=== PATIENT | female | born 1935 | race African-American/Black ===

== ENCOUNTER 2019-01-01 08:26 | Inpatient (IN) | payer MEDICARE, OTHER ==
[~2019-01-01] VITALS: Ht 175.3 cm; Wt 52.6 kg
[~2019-01-01 08:26] MED LIST: ARICEPT10 MG ORAL; BUSPIRONE HCL10 M1 ORAL; DEBROX15 M1 OT; KEPPRA500 MG ORAL; KEPPRA500 MG PO; LATANOPROST2.5 ML BOTH EYES; LEVOTHYROXINE75 MCG ORAL; NORVASC2.5 MG PO; SYNTHROID50 MCG PO
[2019-01-01] MEDS ORDERED: ZOLOFT25 MG ORAL (08:33)
[2019-01-01] MEDS ORDERED: LISINOPRIL2.5 MG ORAL (08:34)
--- NOTE | 2019-01-01 09:00 | NUR ---
ED Nurse Note: Pt BIBA from home due to generalized weakness, started with vomiting on Saturday12/27/2018. Pt ate some food that "wasnt agreeing with her", since then she has not been "losing her appetite, only eating fluid food". Pt is stated to walk on her own usually but today she could not get out of bed. Aox4, VSS will, BP 102/45 will. Will cont to monitor.
[2019-01-01 09:11] VITALS: BP 106/45
--- NOTE | 2019-01-01 09:12 | NUR ---
ED Nurse Note: Blood drawn and sent to lab.
[2019-01-01 09:23] LABS: BASOPHILS % (AUTO) 1.1 % (0.0-2.0); EOSINOPHILS % (AUTO) 0.2 % (0.0-3.0); HEMOGLOBIN 15.8 G/DL (12.0-16.0); LYMPHOCYTES % (AUTO) 15.4 % (20.0-45.0); MEAN CORPUSCULAR VOLUME 85 FL (80-99); MONOCYTES % (AUTO) 10.7 % (1.0-10.0); NEUTROPHILS % (AUTO) 72.7 % (45.0-75.0); PLATELET COUNT 177 K/UL (150-450); RED BLOOD COUNT 5.76 M/UL (4.20-5.40); RED CELL DISTRIBUTION WIDTH 11.9 % (11.6-14.8); WHITE BLOOD COUNT 7.2 K/UL (4.8-10.8)
[2019-01-01 09:35] LABS: ANION GAP 8 mmol/L (5-15); BLOOD UREA NITROGEN 82 mg/dL (7-18); CALCIUM 9.6 MG/DL (8.5-10.1); CARBON DIOXIDE 29 MMOL/L (21-32); CHLORIDE 101 MMOL/L (98-107); CREATININE 1.7 MG/DL (0.55-1.30); POTASSIUM 4.1 MMOL/L (3.5-5.1); SODIUM 138 MMOL/L (136-145)
[2019-01-01 09:45] LABS: ALANINE AMINOTRANSFERASE 19 U/L (12-78); ALBUMIN/GLOBULIN RATIO 0.7 (1.0-2.7); ALKALINE PHOSPHATASE 70 U/L (46-116); ASPARTATE AMINO TRANSFERASE 26 U/L (15-37); BILIRUBIN,TOTAL 0.7 MG/DL (0.2-1.0)
[2019-01-01 11:09] VITALS: BP 99/40
--- NOTE | 2019-01-01 11:30 | NUR ---
ED Nurse Note: Pt sleeping comfortably in bed. BP systolic monitored Q30 mins, systolic BP >90 at all time.
--- NOTE | 2019-01-01 11:36 | NUR ---
ED Nurse Note: Report given to BHARGAV Cyr at ext [phone]. Pt to be transfered to room 201-[facility] per protocol.
[2019-01-01] MEDS ORDERED: Morphine Sulfate 2mg/ml Inj(IV/IM USE ONLY) IVP PRN (12:30)
[2019-01-01] MEDS ORDERED: Zolpidem 5mg tab ORAL PRN (12:30)
[2019-01-01] MEDS ORDERED: LORazepam Inj 2mg/ml 1ml IV PRN (12:30)
[2019-01-01] MEDS ORDERED: Mylanta II UD 30ml ORAL PRN (12:30)
[2019-01-01] MEDS ORDERED: Miralax 17gm pkt ORAL PRN (12:30)
[2019-01-01] MEDS ORDERED: Dextrose 50% 25ml Syringe IV PRN (12:45)
--- NOTE | 2019-01-01 13:44 | Consultation ---
History of Present Illness General Date patient seen: January 01, 2019 Chief Complaint: Generalized Weakness Present Illness HPI 83 year old female with hx of HTN, breast Ca, hypothyroid, seizures ( last episode many years ago) brought in by paramedics with cc of increased weakness and lack of appetite. Pt was found to have ATN and was hypotensive as well. She is admitted to telemetry for further management. Allergies: Coded Allergies: PENICILLINS (Verified Allergy, Unknown, 10/24/15) IODINE (Verified Adverse Reaction, Severe, SEIZURE, 11/06/12) Medication History Scheduled Carbamide Peroxide (Debrox), 5 DROP OT QID Donepezil Hcl* (Aricept*), 10 MG ORAL DAILY, (Reported) Latanoprost* (Xalatan*), 1 DROP BOTH EYES QHS, (Reported) Levetiracetam (Keppra), 250 MG ORAL Q12HR Levothyroxine Sodium* (Levothyroxine Sodium*), 75 MCG ORAL ACBREAKFAST Lisinopril* (Lisinopril*), Unknown Dose ORAL DAILY, (Reported) Sertraline Hcl* (Zoloft*), Unknown Dose ORAL DAILY, (Reported) Miscellaneous Medications Buspirone Hcl* (Buspirone Hcl*), 10 MG ORAL, (Reported) Patient History Healthcare decision maker REN GARCIA Resuscitation status Advanced Directive on File No Past Medical/Surgical History Past Medical/Surgical History: (1) Severe protein-calorie malnutrition (2) Hypothyroidism (3) History of breast cancer (4) Polypharmacy (5) Hypertension Review of Systems All Other Systems: negative except mentioned in HPI Physical Exam General Appearance: cachetic, thin Lines, tubes and drains: peripheral HEENT: normocephalic, atraumatic Neck: non-tender, normal alignment Respiratory/Chest: chest wall non-tender, lungs clear Breasts: no masses Cardiovascular/Chest: normal peripheral pulses, normal rate Abdomen: normal bowel sounds, non tender Genitourinary/Rectal: normal genital exam Extremities: normal range of motion Last 24 Hour Vital Signs Date Time Temp Pulse Resp B/P (MAP) Pulse Ox O2 Delivery O2 Flow Rate FiO2 01/01/19 11:36 78 20 99/40 98 Room Air 01/01/19 11:09 78 22 99/40 98 Room Air 01/01/19 09:11 71 20 Room Air 01/01/19 09:11 71 20 106/45 98 Room Air 01/01/19 08:30 95.7 74 16 92/47 99 Room Air Laboratory Tests Test 01/01/19 09:05 White Blood Count 7.2 K/UL (4.8-10.8) Red Blood Count 5.76 M/UL (4.20-5.40) H Hemoglobin 15.8 G/DL (12.0-16.0) Hematocrit 49.0 % (37.0-47.0) H Mean Corpuscular Volume 85 FL (80-99) Mean Corpuscular Hemoglobin 27.4 PG (27.0-31.0) Mean Corpuscular Hemoglobin Concent 32.1 G/DL (32.0-36.0) Red Cell Distribution Width 11.9 % (11.6-14.8) Platelet Count 177 K/UL (150-450) Mean Platelet Volume 7.3 FL (6.5-10.1) Neutrophils (%) (Auto) 72.7 % (45.0-75.0) Lymphocytes (%) (Auto) 15.4 % (20.0-45.0) L Monocytes (%) (Auto) 10.7 % (1.0-10.0) H Eosinophils (%) (Auto) 0.2 % (0.0-3.0) Basophils (%) (Auto) 1.1 % (0.0-2.0) Erythrocyte Sedimentation Rate 29 MM/HR (0-30) Prothrombin Time 11.0 SEC (9.30-11.50) Prothromb Time International Ratio 1.0 (0.9-1.1) Activated Partial Thromboplast Time 31 SEC (23-33) D-Dimer 2.08 mg/L FEU (0.00-0.49) H Sodium Level 138 MMOL/L (136-145) Potassium Level 4.1 MMOL/L (3.5-5.1) Chloride Level 101 MMOL/L (98-107) Carbon Dioxide Level 29 MMOL/L (21-32) Anion Gap 8 mmol/L (5-15) Blood Urea Nitrogen 82 mg/dL (7-18) H Creatinine 1.7 MG/DL (0.55-1.30) H Estimat Glomerular Filtration Rate mL/min (>60) Glucose Level 92 MG/DL (74-106) Calcium Level 9.6 MG/DL (8.5-10.1) Total Bilirubin 0.7 MG/DL (0.2-1.0) Aspartate Amino Transf (AST/SGOT) 26 U/L (15-37) Alanine Aminotransferase (ALT/SGPT) 19 U/L (12-78) Alkaline Phosphatase 70 U/L (46-116) Troponin I 0.010 ng/mL (0.000-0.056) C-Reactive Protein, Quantitative 8.9 mg/dL (0.00-0.90) H Pro-B-Type Natriuretic Peptide 3491 pg/mL (0-125) H Total Protein 7.2 G/DL (6.4-8.2) Albumin 3.0 G/DL (3.4-5.0) L Globulin 4.2 g/dL Albumin/Globulin Ratio 0.7 (1.0-2.7) L Thyroid Stimulating Hormone (TSH) 0.082 uiU/mL (0.358-3.740) Height (Feet): 5 Height (Inches): 5.00 Weight (Pounds): 140 Medications Current Medications Medications (Trade) Dose Ordered Sig/Peter Route PRN Reason Start Time Stop Time Status Last Admin Dose Admin Acetaminophen (Tylenol) 650 mg Q4H PRN ORAL fever 01/01/19 12:30 01/31/19 12:29 Al Hydroxide/Mg Hydroxide (Mylanta II) 30 ml Q6H PRN ORAL dyspepsia 01/01/19 12:30 01/31/19 12:29 Buspirone HCl (Buspar) 10 mg DAILY ORAL 01/02/19 09:00 02/01/19 08:59 Dextrose (Dextrose 50%) 25 ml Q30M PRN IV Hypoglycemia 01/01/19 12:45 01/31/19 12:30 Dextrose (Dextrose 50%) 50 ml Q30M PRN IV hypoglycemia 01/01/19 12:45 01/31/19 12:44 Dextrose/Sodium Chloride 1,000 ml @ 150 mls/hr Q6H40M IV 01/01/19 14:00 01/31/19 13:59 Levothyroxine Sodium (Synthroid) 75 mcg ACBREAKFAST ORAL 01/02/19 06:30 02/01/19 06:29 Lorazepam (Ativan 2mg/ml 1ml) 0.5 mg Q4H PRN IV For Anxiety 01/01/19 12:30 01/08/19 12:29 Morphine Sulfate (Morphine Sulfate) 1 mg Q4H PRN IVP For Pain 01/01/19 12:30 01/08/19 12:29 Ondansetron HCl (Zofran) 4 mg Q6H PRN IVP Nausea & Vomiting 01/01/19 12:30 01/31/19 12:29 Polyethylene Glycol (Miralax) 17 gm HSPRN PRN ORAL Constipation 01/01/19 12:30 01/31/19 12:29 Zolpidem Tartrate (Ambien) 5 mg HSPRN PRN ORAL Insomnia 01/01/19 12:30 01/08/19 12:29 Assessment/Plan Problem List: (1) ATN (acute tubular necrosis) ICD Codes: N17.0 - Acute kidney failure with tubular necrosis SNOMED: 76653902 (2) Hypotension ICD Codes: I95.9 - Hypotension, unspecified SNOMED: 75325697 (3) Polypharmacy ICD Codes: Z79.899 - Other head charrer (current) drug therapy SNOMED: 864957428 (4) Severe protein-calorie malnutrition ICD Codes: E43 - Unspecified severe protein-calorie malnutrition SNOMED: 571012693, 647592968, 243332636 (5) Hypothyroidism ICD Codes: E03.9 - Hypothyroidism, unspecified SNOMED: 23706189 (6) History of breast cancer ICD Codes: Z85.3 - Personal history of malignant neoplasm of breast SNOMED: 151526244 Assessment/Plan: iv fluids check electrolytes calorie count trial of Marinol dc unnecessary medications. Cheo Moffett MD January 01, 2019 13:44
[2019-01-01] MEDS: D5 1/2NS 1,000 ML IV SCH ×2 (14:46→20:41)
--- NOTE | 2019-01-01 15:50 | NUR ---
NURSING NOTE: Report received from BHARGAV Solorio. Pt transferred from ER via gurney. Skin intact and belongings checked by charge nurse and ER nurse while i was in my 30 min break. daughter at the bedside. A/O x4. SR with fishing tool supervisor. On RA, saturating at 98%, no signs of SOB. IV intact and patent. Bed in the lowest position. Side rails up x2. Call light within reach. Will continue to monitor.
[2019-01-01 16:00] VITALS: BP 95/54
--- NOTE | 2019-01-01 16:16 | Emergency Room Report ---
History of Present Illness General Chief Complaint: Generalized Weakness Source: Patient, Medical Record, EMS Present Illness HPI Patient is an 83-year-old female brought in by EMS after increased generalized weakness and decreased blood pressure. Patient had recently had blood pressure medication adjusted. She was noted to be more weak all over. Patient had been brought in by EMS and was noted to be hypotensive and was started on IV fluids. Patient was noted to have any complaints of pain. 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 Hx Alzheimer's Disease: Yes Hx Seizures: Yes Review of Systems All Other Systems: limited - Review of systems: Review systems is limited by patient's being a poor historian Physical Exam Vital Signs Date Time Temp Pulse Resp B/P (MAP) Pulse Ox O2 Delivery O2 Flow Rate FiO2 01/01/19 08:30 95.7 74 16 92/47 99 Room Air General Appearance: moderate distress, Chronically Ill Head: normocephalic ENT: normal pharynx Neck: limited range of motion Respiratory: lungs clear, normal breath sounds Cardiovascular #1: regular rate, rhythm, no edema Gastrointestinal: normal inspection, non tender, soft Musculoskeletal: normal inspection Neurologic: alert, responsive Skin: normal inspection Medical Decision Making Diagnostic Impression: Primary Impression: Hypotension ER Course Patient presented for generalized weakness and low blood pressure. Differential diagnosis included was not limited to anemia, urinary tract infection, electrolyte abnormality, hypothyroidism, myocardial infarction, myasthenia gravis, dehydration, among others. Because of complexity of patient' s case laboratory testing and imaging studies were ordered. Laboratory was unremarkable except for elevated BUN and Creatinine consistent with dehydration. Patient was not noted to have any recent bleeding. patient was noted to be initially hypotensive. Patient was started on fluids and was noted to have improvement in her hypotension. The patient's etiology for hypotension is unclear however this may be related to recent onset of medication use.Dr. Moffett was contacted for inpatient management due to complexity of medical condition. Labs Test 01/01/19 09:05 White Blood Count 7.2 K/UL (4.8-10.8) Red Blood Count 5.76 M/UL (4.20-5.40) Hemoglobin 15.8 G/DL (12.0-16.0) Hematocrit 49.0 % (37.0-47.0) Mean Corpuscular Volume 85 FL (80-99) Mean Corpuscular Hemoglobin 27.4 PG (27.0-31.0) Mean Corpuscular Hemoglobin Concent 32.1 G/DL (32.0-36.0) Red Cell Distribution Width 11.9 % (11.6-14.8) Platelet Count 177 K/UL (150-450) Mean Platelet Volume 7.3 FL (6.5-10.1) Neutrophils (%) (Auto) 72.7 % (45.0-75.0) Lymphocytes (%) (Auto) 15.4 % (20.0-45.0) Monocytes (%) (Auto) 10.7 % (1.0-10.0) Eosinophils (%) (Auto) 0.2 % (0.0-3.0) Basophils (%) (Auto) 1.1 % (0.0-2.0) Erythrocyte Sedimentation Rate 29 MM/HR (0-30) Prothrombin Time 11.0 SEC (9.30-11.50) Prothromb Time International Ratio 1.0 (0.9-1.1) Activated Partial Thromboplast Time 31 SEC (23-33) D-Dimer 2.08 mg/L FEU (0.00-0.49) Sodium Level 138 MMOL/L (136-145) Potassium Level 4.1 MMOL/L (3.5-5.1) Chloride Level 101 MMOL/L (98-107) Carbon Dioxide Level 29 MMOL/L (21-32) Anion Gap 8 mmol/L (5-15) Blood Urea Nitrogen 82 mg/dL (7-18) Creatinine 1.7 MG/DL (0.55-1.30) Estimat Glomerular Filtration Rate mL/min (>60) Glucose Level 92 MG/DL (74-106) Calcium Level 9.6 MG/DL (8.5-10.1) Total Bilirubin 0.7 MG/DL (0.2-1.0) Aspartate Amino Transf (AST/SGOT) 26 U/L (15-37) Alanine Aminotransferase (ALT/SGPT) 19 U/L (12-78) Alkaline Phosphatase 70 U/L (46-116) Troponin I 0.010 ng/mL (0.000-0.056) C-Reactive Protein, Quantitative 8.9 mg/dL (0.00-0.90) Pro-B-Type Natriuretic Peptide 3491 pg/mL (0-125) Total Protein 7.2 G/DL (6.4-8.2) Albumin 3.0 G/DL (3.4-5.0) Globulin 4.2 g/dL Albumin/Globulin Ratio 0.7 (1.0-2.7) Thyroid Stimulating Hormone (TSH) 0.082 uiU/mL (0.358-3.740) EKG Diagnostic Results Rate: normal Rhythm: NSR ST Segments: no acute changes Last Vital Signs Date Time Temp Pulse Resp B/P (MAP) Pulse Ox O2 Delivery O2 Flow Rate FiO2 01/01/19 14:37 Room Air 01/01/19 11:36 78 20 99/40 98 01/01/19 08:30 95.7 Status: improved Disposition: ADMITTED INPATIENT Condition: Stable Referrals: NON PHYSICIAN (PCP) Winston Holm MD January 01, 2019 16:16
[2019-01-01] MEDS: Cyproheptadine HCl 4mg tab ORAL SCH ×2 (17:23→21:33)
--- NOTE | 2019-01-01 17:40 | Cardiology Report ---
APPROVED REPORT EKG Measurement Heart [id number] ID [id number] Normal sinus rhythm Biatrial enlargement Left axis deviation Incomplete RBBB Nonspecific T wave abnormality Prolonged QT Abnormal ECG
--- NOTE | 2019-01-01 19:30 | NUR ---
NURSE NOTES: Received pt. and report from BHARGAV Cyr. Observe pt. resting in bed with both eyes open. Pt. is A/Ox4. IV site intact, asymptomatic, and patent. Bed is in the lowest position and locked. Call light within reach. No signs/symptoms of acute distress noted at this time. Will continue plan of care.
--- NOTE | 2019-01-01 19:39 | NUR ---
HAND-OFF: Report given to TANI DURANT.
[2019-01-01 20:00] VITALS: BP 113/56
[2019-01-02] VITALS (9 sets, daily range): BP systolic 91–177; BP diastolic 45–87
[2019-01-02] MEDS: D5 1/2NS 1,000 ML IV SCH ×4 (03:21→21:00)
[2019-01-02 07:07] LABS: BASOPHILS % (AUTO) 0.8 % (0.0-2.0); EOSINOPHILS % (AUTO) 0.7 % (0.0-3.0); HEMOGLOBIN 12.1 G/DL (12.0-16.0); LYMPHOCYTES % (AUTO) 22.2 % (20.0-45.0); MEAN CORPUSCULAR VOLUME 85 FL (80-99); MONOCYTES % (AUTO) 9.4 % (1.0-10.0); NEUTROPHILS % (AUTO) 66.9 % (45.0-75.0); PLATELET COUNT 153 K/UL (150-450); RED BLOOD COUNT 4.33 M/UL (4.20-5.40); RED CELL DISTRIBUTION WIDTH 11.7 % (11.6-14.8); WHITE BLOOD COUNT 5.6 K/UL (4.8-10.8)
--- NOTE | 2019-01-02 07:19 | NUR ---
NURSE NOTES: Received report from BHARGAV Varma. pt resting in bed with both eyes open.is A/Ox4. IV site intact, asymptomatic, and patent. Bed is in the lowest position, rails up, padded x2and locked. Call light within reach. No signs/symptoms of acute distress noted at this time. Will continue plan of care.
[2019-01-02 07:22] LABS: ALANINE AMINOTRANSFERASE 17 U/L (12-78); ALBUMIN 2.3 G/DL (3.4-5.0); ALBUMIN/GLOBULIN RATIO 0.7 (1.0-2.7); ALKALINE PHOSPHATASE 52 U/L (46-116); ANION GAP 6 mmol/L (5-15); ASPARTATE AMINO TRANSFERASE 16 U/L (15-37); BILIRUBIN,TOTAL 0.3 MG/DL (0.2-1.0); BLOOD UREA NITROGEN 67 mg/dL (7-18); CALCIUM 8.4 MG/DL (8.5-10.1); CARBON DIOXIDE 28 MMOL/L (21-32); CHLORIDE 104 MMOL/L (98-107); CHOLESTEROL 153 MG/DL (< 200); CREATININE 1.1 MG/DL (0.55-1.30); HDL CHOLESTEROL 49 MG/DL (40-60); SODIUM 138 MMOL/L (136-145); TRIGLYCERIDES 70 MG/DL (30-150)
--- NOTE | 2019-01-02 07:27 | NUR ---
HAND-OFF: Report given to BHARGAV Cyr.
--- NOTE | 2019-01-02 08:06 | NUR ---
CASE MANAGEMENT:REVIEW 83 YR OLD FEMALE BIBA FROM HOME CC: GENERALIZED WEAKNESS. VOMITING. BP~85/67 SI: HYPOTENSION. GENERALIZED WEAKNESS 95.8 74 16 92/47 99% ON RA BUN+82 CR+1.7 IS: 500CC NS BOLUS BLOOD CX : TO TELEMETRY INTERQUAL CRITERIA MET
[2019-01-02] MEDS ORDERED: BusPIRone 5mg Tab ORAL SCH (09:00)
[2019-01-02] MEDS: Cyproheptadine HCl 4mg tab ORAL SCH ×4 (09:09→20:59)
--- NOTE | 2019-01-02 10:24 | Pulmonology Progress Note ---
Assessment/Plan Problems: (1) ATN (acute tubular necrosis) (2) Hypotension (3) Polypharmacy (4) Severe protein-calorie malnutrition (5) Hypothyroidism (6) History of breast cancer Assessment/Plan decrease IV fluid electrolytes improving BP more stable continue calorie count endocrinology pending dvt prophylaxis. Subjective ROS Limited/Unobtainable: No Constitutional: Reports: no symptoms HEENT: Repors: no symptoms Respiratory: Reports: no symptoms Allergies: Coded Allergies: PENICILLINS (Verified Allergy, Unknown, 10/24/15) IODINE (Verified Adverse Reaction, Severe, SEIZURE, 11/06/12) Objective Last 24 Hour Vital Signs Date Time Temp Pulse Resp B/P (MAP) Pulse Ox O2 Delivery O2 Flow Rate FiO2 01/02/19 09:39 Room Air 01/02/19 09:11 96.9 78 18 98/66 (77) 98 01/02/19 08:00 96.9 78 18 98/66 (77) 98 01/02/19 04:00 97.4 82 18 115/54 (74) 97 01/02/19 04:00 68 01/02/19 00:00 88 01/02/19 00:00 97.0 88 18 91/45 (60) 97 01/01/19 21:00 Room Air 01/01/19 20:00 97.4 72 20 113/56 (75) 97 01/01/19 20:00 72 01/01/19 16:27 72 01/01/19 16:00 98.3 20 95/54 (68) 95 01/01/19 14:37 Room Air 01/01/19 11:36 78 20 99/40 98 Room Air 01/01/19 11:09 78 22 99/40 98 Room Air Intake and Output 01/01/19 01/02/19 19:00 07:00 Intake Total 1315 ml 1500 ml Balance 1315 ml 1500 ml Intake IV Total 1315 ml 1500 ml # Voids 1 3 General Appearance: WD/WN HEENT: normocephalic, atraumatic Respiratory/Chest: chest wall non-tender, lungs clear Breasts: no masses Cardiovascular: normal peripheral pulses Abdomen: normal bowel sounds, soft, non tender Genitourinary: normal external genitalia Extremities: no clubbing Skin: no rash Neurologic/Psychiatric: wood polisher II-XII grossly normal Lymphatic: no neck adenopathy Laboratory Tests 01/01/19 17:50: Carcinoembryonic Antigen [Pending] 01/02/19 05:15: White Blood Count 5.6, Red Blood Count 4.33, Hemoglobin 12.1, Hematocrit 37.0, Mean Corpuscular Volume 85, Mean Corpuscular Hemoglobin 28.0, Mean Corpuscular Hemoglobin Concent 32.8, Red Cell Distribution Width 11.7, Platelet Count 153, Mean Platelet Volume 7.7, Neutrophils (%) (Auto) 66.9, Lymphocytes (%) (Auto) 22.2, Monocytes (%) (Auto) 9.4, Eosinophils (%) (Auto) 0.7, Basophils (%) (Auto ) 0.8, Sodium Level 138, Potassium Level 3.0L, Chloride Level 104, Carbon Dioxide Level 28, Anion Gap 6, Blood Urea Nitrogen 67H, Creatinine 1.1, Estimat Glomerular Filtration Rate , Glucose Level 102, Calcium Level 8.4L, Total Bilirubin 0.3, Aspartate Amino Transf (AST/SGOT) 16, Alanine Aminotransferase ( ALT/SGPT) 17, Alkaline Phosphatase 52, Total Protein 5.7L, Albumin 2.3L, Globulin 3.4, Albumin/Globulin Ratio 0.7L, Triglycerides Level 70, Cholesterol Level 153, LDL Cholesterol 87, HDL Cholesterol 49, Cholesterol/HDL Ratio 3.1L, Thyroid Stimulating Hormone (TSH) 0.076L Current Medications Medications (Trade) Dose Ordered Sig/Peter Route PRN Reason Start Time Stop Time Status Last Admin Dose Admin Acetaminophen (Tylenol) 650 mg Q4H PRN ORAL fever 01/01/19 12:30 01/31/19 12:29 Al Hydroxide/Mg Hydroxide (Mylanta II) 30 ml Q6H PRN ORAL dyspepsia 01/01/19 12:30 01/31/19 12:29 Cyproheptadine HCl (Periactin) 2 mg QID ORAL 01/01/19 18:00 01/31/19 17:59 01/02/19 09:09 Dextrose (Dextrose 50%) 25 ml Q30M PRN IV Hypoglycemia 01/01/19 12:45 01/31/19 12:30 Dextrose (Dextrose 50%) 50 ml Q30M PRN IV hypoglycemia 01/01/19 12:45 01/31/19 12:44 Dextrose/Sodium Chloride 1,000 ml @ 75 mls/hr [id number] IV 01/02/19 14:00 01/31/19 13:59 UNV Levothyroxine Sodium (Synthroid) 50 mcg DAILY@0630 ORAL 01/03/19 06:30 02/02/19 06:29 Lorazepam (Ativan 2mg/ml 1ml) 0.5 mg Q4H PRN IV For Anxiety 01/01/19 12:30 01/08/19 12:29 Morphine Sulfate (Morphine Sulfate) 1 mg Q4H PRN IVP For Pain 01/01/19 12:30 01/08/19 12:29 Ondansetron HCl (Zofran) 4 mg Q6H PRN IVP Nausea & Vomiting 01/01/19 12:30 01/31/19 12:29 Polyethylene Glycol (Miralax) 17 gm HSPRN PRN ORAL Constipation 01/01/19 12:30 01/31/19 12:29 Potassium Chloride 100 ml @ 100 mls/hr Q1H IVPB 01/02/19 10:30 01/02/19 14:29 UNV Zolpidem Tartrate (Ambien) 5 mg HSPRN PRN ORAL Insomnia 01/01/19 12:30 01/08/19 12:29 Cheo Moffett MD January 02, 2019 10:24
[2019-01-02] MEDS ORDERED: D5 1/2NS 1,000 ML IV SCH (11:00)
--- NOTE | 2019-01-02 11:13 | NUR ---
RADIOLOGY DEPT., LEFT WRIST X-RAY DONE.-P.DYE
--- NOTE | 2019-01-02 13:22 | NUR ---
P.T Note: P.T evaluation deferred pending MRI result of the spine and X-Ray of the L wrist.
--- NOTE | 2019-01-02 13:35 | Diagnostic Imaging Report ---
Clinical Indication: Bony deformity Technique: 3 views of the left wrist Comparison: None Findings: There is a minimally angulated transverse fracture of the distal radius. This probably does not reach the articular surface although this cannot be stated for certain. The ulnar styloid appears intact, although there is questionably an old injury with a faint residual osseous fragment at the tip of the ulnar styloid. No carpal fracture demonstrated. There are mild degenerative changes of the lateral intercarpal joint and of the first carpometacarpal joint. There are also degenerative changes of the first metacarpophalangeal and interphalangeal joints. The bones are osteoporotic. There is a small cyst in the lunate. Impression: Positive for distal radial fracture Dr. Moffett notified of this finding previously
--- NOTE | 2019-01-02 14:20 | NUR ---
NURSE NOTES: Patient transferred from Telemetry 201-2 to 302-2 via bed at 1420. Patient alert, oriented x3, calm, caregiver at bedside. Vitals obtained, T 98.2 P 81 RR 18 BP 177/87(will recheck and notify MD). Patient asymptomatic, denies chest pain, SOB on RA, or dizziness. IVF infusing to RFA. RAC heplock, intact, site asymptomatic. Left wrist mild redness and swelling, elevated on pillow, applied ice pack as tolerated. Incontinent of bladder, provided skin care, linen changed. Oriented to room and call light. Bed in lowest position, will continue to monitor.
--- NOTE | 2019-01-02 14:35 | NUR ---
RD ASSESSMENT & RECOMMENDATIONS SEE CARE ACTIVITY FOR COMPLETE ASSESSMENT DAILY ESTIMATED NEEDS: Needs based on Wt loss, underweight/ 53kg 30-35 kcals/kg 4282-6201 total kcals 1-1.5 g protein/kg 53-79 g total protein 25-30 mL/kg 7490-3409 total fluid mLs NUTRITION DIAGNOSIS: Increased kcal/prot needs R/T underweight status and wt loss as evidenced by pt @ 80% IBW, low BMI per guidelines, CG reports recent ~19lbs/ 14% wt loss in 3 months, significant. CURRENT DIET:REGULAR PO DIET RECOMMENDATIONS: REGULAR diet/ texture as tolerated + Ensure Enlive BID w/ meals ADDITIONAL RECOMMENDATIONS: * TXR PT TO BED WITH BEDSCALE, OBTAIN WEEKLY WTS * F/up w/ Calorie Count x 48 hrs (01/01-01/03) * Add Ensure Enlive BID w/ meals (350kcal/20g prot per bottle) * MVI x 1 as supplement
--- NOTE | 2019-01-02 14:50 | NUR ---
NURSE NOTES: Patient sent down for MRI of L-Spine at this time via [place]. Patient stable.
--- NOTE | 2019-01-02 15:00 | NUR ---
NURSE NOTES: PATIENT TRANSFERRED TO [facility]UR[facility] WITH ALL HER BELONGING. VITAL SIGNS STABLE. REPORT GIVEN TO REBEKAH DURANT.
[2019-01-02] MEDS ORDERED: Mylanta II UD 30ml ORAL PRN (15:05)
[2019-01-02] MEDS ORDERED: LORazepam Inj 2mg/ml 1ml IV PRN (15:05)
[2019-01-02] MEDS ORDERED: Morphine Sulfate 2mg/ml Inj(IV/IM USE ONLY) IVP PRN (15:06)
[2019-01-02] MEDS ORDERED: Zolpidem 5mg tab ORAL PRN (15:06)
[2019-01-02] MEDS ORDERED: Miralax 17gm pkt ORAL PRN (15:06)
--- NOTE | 2019-01-02 15:45 | NUR ---
NURSE NOTES: Patient returned to [facility] via [facility] in stable condition from MRI.
--- NOTE | 2019-01-02 16:49 | Diagnostic Imaging Report ---
Indication: Low back pain, history of recent fall Technique: Sagittal T1 and T2 fast spin echo, sagittal STIR, axial T1 and T2 fast spin-echo images of the lumbar spine Comparison: none Findings: There is some image degradation due to motion artifact. There is mild scoliotic deformity.. There is very slight anterior offset of L2 on L3. Bony alignment is otherwise normal. There is heterogeneity to the bone marrow, appearance suggestive of combination of the hematopoietic bone marrow and osteoporotic change. There is very slight downward depression of the superior endplate of L2 with questionable subtle adjacent decreased T1 and increased STIR signal. The vertebral body heights and endplates are otherwise preserved and there is no focal marrow signal abnormality elsewhere. At T12-L1, no significant disc bulge or protrusion, spinal stenosis, or neural foraminal stenosis. At L1-2, there is intraforaminal posterior disc protrusion on the right. This, in combination with ligamentum flavum hypertrophy and facet arthrosis, results in mild to moderate narrowing of the right neural foramen. There is also mild narrowing of the spinal canal at this level, due predominantly to ligamentum flavum hypertrophy. At L2-3, there is mild degenerative disc narrowing. There is circumferential annular bulge. This, in combination with short pedicles and ligament flavum hypertrophy, results in moderate to severe narrowing the spinal canal. There is also moderate narrowing of the bilateral neural foramina at this level, right greater than left. At L3-4, there is moderate degenerative disc narrowing. There is circumferential annular bulge and posterior osteophyte complex. There is narrowing of the left neural foramen, likely severe. There is mild narrowing of the right neural foramen. The annular bulge, short pedicles, and facet and ligamentum flavum hypertrophy results in moderate narrowing of the spinal canal at this level. At L4-5, there is moderate to severe degenerative disc narrowing. This results in mild spinal stenosis. There is moderate left neural foraminal stenosis at this level. At L5-S1, there is moderate degenerative disc narrowing. No significant disc bulge or protrusion or spinal stenosis. There is mild to moderate narrowing of the left neural foramen. The included extraspinal cyst soft tissues are unremarkable for the presence of a large left renal cyst. Other renal cysts are present bilaterally. Impression: Superior endplate depression of L2, with questionable subtle adjacent marrow edema, could indicate a subacute superior endplate compression fracture. Correlate with clinical history. No other acute abnormality Multilevel degenerative changes, as detailed on a level by level basis above. Bilateral renal cysts
--- NOTE | 2019-01-02 19:00 | Consultation ---
DATE OF CONSULTATION: 01/02/2019 ENDOCRINOLOGY CONSULTATION CONSULTING PHYSICIAN: Leandro Hooker M.D. REFERRING PHYSICIAN: Cheo Moffett M.D. REASON FOR CONSULTATION: Hypothyroidism. HISTORY OF PRESENT ILLNESS: The patient is an 83-year-old female, who was brought in by paramedics after increasing weakness and decreased blood pressure. Recently, blood pressure regimen has been adjusted as she was noted to be generally weak, brought in by paramedics and was noted to be hypotensive and was started on IV fluid. Upon evaluation, a TSH was obtained, which was suppressed to 0.02. Endocrinology was consulted as an outpatient. She is on levothyroxine 75 mcg when she does have history of hypothyroidism. PAST MEDICAL HISTORY: 1. Hypertension. 2. Asthma. 3. Hypothyroidism. 4. Alzheimer disease. 5. Seizure disorder. PAST SURGICAL HISTORY: None. ALLERGIES TO MEDICATIONS: Penicillin and iodine. REVIEW OF SYSTEMS: Difficult to obtain due to the patient is being a poor historian. FAMILY HISTORY: Noncontributory. SOCIAL HISTORY: No smoking, alcohol, or drug use. LABORATORY VALUES: Sodium 138, potassium 4.1, chloride 101, bicarb 29, BUN 82, creatinine 1.7. CRP of 8.9. BNP of 3491. TSH of 0.082. PHYSICAL EXAMINATION: VITAL SIGNS: Blood pressure is 115/54, pulse 82, temperature 97.4, and respiratory rate 18. HEENT: Pupils are reactive to light. NECK: No JVD. HEART: Regular. LUNGS: Crackles. ABDOMEN: Positive bowel sounds. EXTREMITIES: Positive for edema. DIAGNOSES: 1. Generalized weakness. 2. Hypotension. 3. CHF. 4. Iatrogenic hyperthyroidism. 5. Underlying hypothyroidism. DISCUSSION: The patient's blood pressure medication has been adjusted. Unclear if the TSH is suppressed. The patient is to be treated with the same dose of levothyroxine. I will reduce the dose from 75 mcg to 50 mcg, which will be started on armature coil winder on empty stomach. Thyroid function should be repeated in 2 to 4 weeks. I will follow the patient. Thank you, Dr. Moffett, for the courtesy of this consultation. Leandro Hooker M.D. DR: JEFF JOB#: [id number] CC: ENRICO
--- NOTE | 2019-01-02 19:00 | NUR ---
NURSE NOTES: Dr. Moffett notified of elevated blood pressure, 171/79 mmHg, at 1630, (patient asymptomatic, denies chest pain, SOB or dizziness), orders for Clonidine 0.1 mg received. Administered as ordered, blood pressure recheck 143/74 mmHg. Will continue to monitor.
--- NOTE | 2019-01-02 19:25 | NUR ---
HAND-OFF: Report given to Lo DURANT.
--- NOTE | 2019-01-02 19:35 | NUR ---
NURSE NOTES: Report taken from BHARGAV Muniz. Patient is in bed, fatigued, A&Ox3. Has bedside caregiver, Soo, stated that patient will have a caregiver with her for most of the day. No signs of distress on room air. patient is having 5/10 pain in the left wrist and left thumb. Swelling and edema in the area. IV site c/d/i and patent, running D5 1/2NS @ 75mls/hr. Patient has not eaten her meal, encouraged patient to try and eat, went through risk/benefit of low appetite. Continue to monitor, bed in lowest position, call light within reach.
--- NOTE | 2019-01-02 21:45 | Consultation ---
DATE OF CONSULTATION: 01/02/2019 ORTHOPEDIC CONSULTATION CONSULTING PHYSICIAN: Brad Samuels M.D. REQUESTING PHYSICIAN: Cheo Moffett M.D. CHIEF COMPLAINT: Left wrist pain. HISTORY OF PRESENT ILLNESS: The patient is a pleasant female, who was admitted for generalized weakness, hypertension, and swelling and pain of the left wrist, subsequently had imaging studies, which showed a possible fracture. Orthopedic consultation obtained for further care and recommendation. PAST MEDICAL HISTORY: Reviewed per intake chart. PAST SURGICAL HISTORY: Reviewed per intake chart. MEDICATIONS: Reviewed per intake chart. PHYSICAL EXAMINATION: GENERAL: The patient is alert. She has some underlying cognitive impairment. She is little confused. EXTREMITIES: She has some swelling in the left wrist, tender to palpation of the left wrist. No ecchymosis. Radial and ulnar pulses +2. DIAGNOSTIC DATA: Imaging studies show a nondisplaced fracture of distal radius. ASSESSMENT: Left distal radius fracture. DISCUSSION: At this point, what I recommend is immobilization . She is nonweightbearing. Risks, limitations, expectations, complications of the procedure were discussed with the glass sander belt. We . She is nonweightbearing for 6 weeks. Brad Samuels M.D. DR: TANVI JOB#: [id number] CC: Cheo Moffett M.D.; Fax#: [phone]
[2019-01-03] VITALS (7 sets, daily range): BP systolic 106–162; BP diastolic 50–60
--- NOTE | 2019-01-03 07:27 | General Progress Note ---
Assessment/Plan Problem List: (1) Hypothyroidism ICD Codes: E03.9 - Hypothyroidism, unspecified SNOMED: 77401136 (2) Hypotension ICD Codes: I95.9 - Hypotension, unspecified SNOMED: 07553606 (3) Polypharmacy ICD Codes: Z79.899 - Other care home (current) drug therapy SNOMED: 240123711 Assessment/Plan: Levothyroxine dosage lowered from 75 to 50 mcg due to suppressed TSH repeat thyroid function in 3 weeks Subjective ROS Limited/Unobtainable: Yes Allergies: Coded Allergies: PENICILLINS (Verified Allergy, Unknown, 10/24/15) IODINE (Verified Adverse Reaction, Severe, SEIZURE, 11/06/12) Subjective events noted Objective Last 24 Hour Vital Signs Date Time Temp Pulse Resp B/P (MAP) Pulse Ox O2 Delivery O2 Flow Rate FiO2 01/03/19 04:11 100.0 96 17 109/55 (73) 95 01/03/19 00:00 98.1 100 20 106/53 (70) 96 01/02/19 21:00 Room Air 01/02/19 20:00 99.2 107 16 137/74 (95) 94 01/02/19 19:00 143/74 (97) 01/02/19 17:53 171/79 01/02/19 16:00 99.5 95 20 171/79 (109) 95 01/02/19 14:20 98.2 81 18 177/87 (117) 95 01/02/19 11:47 97.8 71 18 125/65 (85) 96 01/02/19 09:39 Room Air 01/02/19 09:11 96.9 78 18 98/66 (77) 98 01/02/19 08:00 96.9 78 18 98/66 (77) 98 01/02/19 08:00 77 Intake and Output 01/02/19 01/03/19 19:00 07:00 Intake Total 500 ml 150 ml Output Total 200 ml Balance 300 ml 150 ml Intake Oral 200 ml 150 ml IV Total 300 ml Output Urine Total 200 ml # Voids 1 2 Height (Feet): 5 Height (Inches): 9.00 Weight (Pounds): 116 General Appearance: no apparent distress Neck: normal alignment Cardiovascular: normal rate Respiratory/Chest: lungs clear Abdomen: normal bowel sounds Pelvis: normal external exam Objective Current Medications Medications (Trade) Dose Ordered Sig/Peter Route PRN Reason Start Time Stop Time Status Last Admin Dose Admin Acetaminophen (Tylenol) 650 mg Q4H PRN ORAL fever 01/02/19 15:05 02/01/19 15:04 Al Hydroxide/Mg Hydroxide (Mylanta II) 30 ml Q6H PRN ORAL dyspepsia 01/02/19 15:05 02/01/19 15:04 Clonidine HCl (Catapres Tab) 0.1 mg Q6H PRN ORAL For High Blood Pressure 01/02/19 16:45 02/01/19 16:44 01/02/19 17:53 Cyproheptadine HCl (Periactin) 2 mg QID ORAL 01/02/19 18:00 01/31/19 17:59 01/02/19 20:59 Dextrose (Dextrose 50%) 25 ml Q30M PRN IV Hypoglycemia 01/02/19 15:15 01/31/19 12:30 Dextrose (Dextrose 50%) 50 ml Q30M PRN IV hypoglycemia 01/02/19 15:15 01/31/19 12:44 Dextrose/Sodium Chloride 1,000 ml @ 75 mls/hr [id number] IV 01/02/19 15:05 02/01/19 15:04 01/02/19 21:00 Levothyroxine Sodium (Synthroid) 50 mcg DAILY@0630 ORAL 01/03/19 06:30 02/02/19 06:29 01/03/19 06:37 Lorazepam (Ativan 2mg/ml 1ml) 0.5 mg Q4H PRN IV For Anxiety 01/02/19 15:05 01/09/19 15:04 Morphine Sulfate (Morphine Sulfate) 1 mg Q4H PRN IVP For Pain 01/02/19 15:06 01/09/19 15:05 Ondansetron HCl (Zofran) 4 mg Q6H PRN IVP Nausea & Vomiting 01/02/19 15:06 02/01/19 15:05 Polyethylene Glycol (Miralax) 17 gm HSPRN PRN ORAL Constipation 01/02/19 15:06 02/01/19 15:05 Zolpidem Tartrate (Ambien) 5 mg HSPRN PRN ORAL Insomnia 01/02/19 15:06 01/09/19 15:05 Leandro Hooker MD January 03, 2019 07:27
--- NOTE | 2019-01-03 07:33 | NUR ---
HAND-OFF: Report given to BHARGAV Kerr. Patient is in bed, VS stable.
[2019-01-03 07:49] LABS: BASOPHILS % (AUTO) 0.7 % (0.0-2.0); EOSINOPHILS % (AUTO) 0.6 % (0.0-3.0); HEMATOCRIT 37.4 % (37.0-47.0); HEMOGLOBIN 12.2 G/DL (12.0-16.0); LYMPHOCYTES % (AUTO) 16.4 % (20.0-45.0); MEAN CORPUSCULAR VOLUME 85 FL (80-99); MONOCYTES % (AUTO) 12.8 % (1.0-10.0); NEUTROPHILS % (AUTO) 69.5 % (45.0-75.0); PLATELET COUNT 178 K/UL (150-450); RED CELL DISTRIBUTION WIDTH 11.9 % (11.6-14.8); WHITE BLOOD COUNT 5.6 K/UL (4.8-10.8)
--- NOTE | 2019-01-03 07:51 | NUR ---
NURSE NOTES: During shift change patient awake with out no distress call light with in reach bed on low position will continue to monitor.
[2019-01-03 08:17] LABS: ALANINE AMINOTRANSFERASE 18 U/L (12-78); ALBUMIN 2.3 G/DL (3.4-5.0); ALBUMIN/GLOBULIN RATIO 0.6 (1.0-2.7); ALKALINE PHOSPHATASE 60 U/L (46-116); ANION GAP 6 mmol/L (5-15); ASPARTATE AMINO TRANSFERASE 17 U/L (15-37); BILIRUBIN,TOTAL 0.7 MG/DL (0.2-1.0); BLOOD UREA NITROGEN 29 mg/dL (7-18); CALCIUM 8.6 MG/DL (8.5-10.1); CARBON DIOXIDE 27 MMOL/L (21-32); CHLORIDE 103 MMOL/L (98-107); CREATININE 0.8 MG/DL (0.55-1.30); PHOSPHORUS 2.2 MG/DL (2.5-4.9); POTASSIUM 3.8 MMOL/L (3.5-5.1); SODIUM 136 MMOL/L (136-145)
--- NOTE | 2019-01-03 08:18 | Pulmonology Progress Note ---
Assessment/Plan Assessment/Plan ASSESSMENT hypotension ( possibly due to over-effect of newly prescribed antiHTN meds) acute tubular necrosis -resolved ( likely due to dehydration leading to hypovolemia ) severe protein calorie malnutrition Left extra-articular distal radius fracture ,non-displaced history of breast cancer hypothyroidism with low TSH e/lyte imbalance - hypo M g, hypo K, hypo P DDD L spine PLAN.OF CARE [facility] floor monitor renal parameters and electrolytes, correct electrolytes as needed, avoid nephrotoxic's decrease rate to 40 in IVF and dc in am encourage oral hydration no BP meds, monitor BP closely Echocardiogram last echo done in 2015 with pEF 65% venous duplex BLE negative left wrist x-ray revealed distal radial fracture lumbar spine MRI possibly subacute endplate compression fracture at L2 no other acute abnormality. Multilevel degenerative changes. ortho seen and evaluated , recommended nonweightbearing for 6 weeks wrist splint ordered pain management Mg and P replaced Synthroid dose decreased due to elevated TSH, repeat TSH in 3 wks, endo follows dietary eval calorie count protein supplements, appetite stimulant added supportive care PT eval and Rx case discussed and evaluated by supervising physician Subjective Allergies: Coded Allergies: PENICILLINS (Verified Allergy, Unknown, 10/24/15) IODINE (Verified Adverse Reaction, Severe, SEIZURE, 11/06/12) Subjective c/o pain left wrist no CP, no signs of resp distress Objective Last 24 Hour Vital Signs Date Time Temp Pulse Resp B/P (MAP) Pulse Ox O2 Delivery O2 Flow Rate FiO2 01/03/19 04:11 100.0 96 17 109/55 (73) 95 01/03/19 00:00 98.1 100 20 106/53 (70) 96 01/02/19 21:00 Room Air 01/02/19 20:00 99.2 107 16 137/74 (95) 94 01/02/19 19:00 143/74 (97) 01/02/19 17:53 171/79 01/02/19 16:00 99.5 95 20 171/79 (109) 95 01/02/19 14:20 98.2 81 18 177/87 (117) 95 01/02/19 11:47 97.8 71 18 125/65 (85) 96 01/02/19 09:39 Room Air 01/02/19 09:11 96.9 78 18 98/66 (77) 98 Intake and Output 01/02/19 01/03/19 19:00 07:00 Intake Total 500 ml 150 ml Output Total 200 ml Balance 300 ml 150 ml Intake Oral 200 ml 150 ml IV Total 300 ml Output Urine Total 200 ml # Voids 1 2 General Appearance: no acute distress, cachetic, other - awake, responsive elderly female HEENT: normocephalic, atraumatic, anicteric, mucous membranes moist Respiratory/Chest: chest wall non-tender, normal breath sounds - with moderate air exchange, no respiratory distress Cardiovascular: normal rate Abdomen: normal bowel sounds, soft, non tender Extremities: no edema, pedal pulses normal Neurologic/Psychiatric: abnormal gait - bedridden , responsive Musculoskeletal: atrophy - BLE Microbiology Date/Time Source Procedure Growth Status 01/01/19 09:05 Blood Blood Culture - Preliminary NO GROWTH AFTER 24 HOURS Resulted 01/01/19 08:50 Blood Blood Culture - Preliminary NO GROWTH AFTER 24 HOURS Resulted Laboratory Tests 01/03/19 06:45: White Blood Count 5.6, Red Blood Count 4.40, Hemoglobin 12.2, Hematocrit 37.4, Mean Corpuscular Volume 85, Mean Corpuscular Hemoglobin 27.7, Mean Corpuscular Hemoglobin Concent 32.5, Red Cell Distribution Width 11.9, Platelet Count 178, Mean Platelet Volume 7.0, Neutrophils (%) (Auto) 69.5, Lymphocytes (%) (Auto) 16.4L, Monocytes (%) (Auto) 12.8H, Eosinophils (%) (Auto) 0.6, Basophils (%) ( Auto) 0.7, Sodium Level [Pending], Potassium Level [Pending], Chloride Level [ Pending], Carbon Dioxide Level [Pending], Blood Urea Nitrogen [Pending], Creatinine [Pending], Estimat Glomerular Filtration Rate [Pending], Glucose Level [Pending], Calcium Level [Pending], Phosphorus Level [Pending], Magnesium Level [Pending], Total Bilirubin [Pending], Aspartate Amino Transf (AST/SGOT) [ Pending], Alanine Aminotransferase (ALT/SGPT) [Pending], Alkaline Phosphatase [ Pending], Total Protein [Pending], Albumin [Pending], Globulin [Pending] Current Medications Medications (Trade) Dose Ordered Sig/Peter Route PRN Reason Start Time Stop Time Status Last Admin Dose Admin Acetaminophen (Tylenol) 650 mg Q4H PRN ORAL fever 01/02/19 15:05 02/01/19 15:04 Al Hydroxide/Mg Hydroxide (Mylanta II) 30 ml Q6H PRN ORAL dyspepsia 01/02/19 15:05 02/01/19 15:04 Clonidine HCl (Catapres Tab) 0.1 mg Q6H PRN ORAL For High Blood Pressure 01/02/19 16:45 02/01/19 16:44 01/02/19 17:53 Cyproheptadine HCl (Periactin) 2 mg QID ORAL 01/02/19 18:00 01/31/19 17:59 01/02/19 20:59 Dextrose (Dextrose 50%) 25 ml Q30M PRN IV Hypoglycemia 01/02/19 15:15 01/31/19 12:30 Dextrose (Dextrose 50%) 50 ml Q30M PRN IV hypoglycemia 01/02/19 15:15 01/31/19 12:44 Dextrose/Sodium Chloride 1,000 ml @ 75 mls/hr [id number] IV 01/02/19 15:05 02/01/19 15:04 01/02/19 21:00 Levothyroxine Sodium (Synthroid) 50 mcg DAILY@0630 ORAL 01/03/19 06:30 02/02/19 06:29 01/03/19 06:37 Lorazepam (Ativan 2mg/ml 1ml) 0.5 mg Q4H PRN IV For Anxiety 01/02/19 15:05 01/09/19 15:04 Morphine Sulfate (Morphine Sulfate) 1 mg Q4H PRN IVP For Pain 01/02/19 15:06 01/09/19 15:05 Ondansetron HCl (Zofran) 4 mg Q6H PRN IVP Nausea & Vomiting 01/02/19 15:06 02/01/19 15:05 Polyethylene Glycol (Miralax) 17 gm HSPRN PRN ORAL Constipation 01/02/19 15:06 02/01/19 15:05 Zolpidem Tartrate (Ambien) 5 mg HSPRN PRN ORAL Insomnia 01/02/19 15:06 01/09/19 15:05 Christelle Spicer NP January 03, 2019 08:18
[2019-01-03] MEDS: Cyproheptadine HCl 4mg tab ORAL SCH ×4 (08:53→21:00)
[2019-01-03] MEDS ORDERED: D5 1/2NS 1,000 ML IV SCH (10:45)
--- NOTE | 2019-01-03 11:09 | NUR ---
NURSE NOTES: Patient transferred to striker bed alarm on, brace applied as ordered, IV infiltrated and swollen will insert another IV.
[2019-01-03] MEDS: Phospha 250 Neutral tab ORAL SCH ×2 (14:06→17:53)
[2019-01-03] MEDS ORDERED: D5 1/2NS 1000ml IV ONE (14:36)
--- NOTE | 2019-01-03 15:28 | NUR ---
PT Note PT isabel completed, treatment initiated. Patient was able to follow instructions but is fearful of falling. Patient needs PT to increase her muscle strength and balance to improve her functional mobility and gait to enable her to return to [facility]. Addendum: 01/03/19 at 1530 by TRISTEN BRIZUELA PT Amended: Links added.
--- NOTE | 2019-01-03 15:44 | Consultation ---
Consult Note Consult Note Cardiology consult - coverage for Dr. Delong Full consult dictated # [id number] Delmi Walls MD January 03, 2019 15:44
--- NOTE | 2019-01-03 19:20 | NUR ---
NURSE NOTES: Report taken from BHARGVA Kerr. patient is awake and in bed, family at bedside. She is A&Ox3, slightly confused, but understands instructions and information given. Having some minimal complaints of pain in the left wrist/hand, 310. 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 No skin issues present, continue to monitor. IV site c/d/i and patent runnings D51/2NS @ 75mls/hr. Patient has been eating more since previous day. Asked to use bedside commode when awake so as not to rely on purwick at all times. She does require moderate assistance to get to commode. Bed in lowest position, call light within reach.
--- NOTE | 2019-01-03 23:15 | Consultation ---
DATE OF CONSULTATION: 01/03/2019 CARDIOLOGY CONSULTATION This is a Cardiology consultation done as coverage for Dr. Delong. REQUESTING PHYSICIAN: Cheo Moffett M.D. REASON FOR CONSULT: Hypotension. HISTORY OF PRESENT ILLNESS: History is obtained from the chart, the patient's daughter, and the patient herself, who is a limited historian. The patient is an 83-year-old woman with a history of hypertension, seizure disorder, hypothyroidism, and Alzheimer disease, who was brought to the emergency room with generalized weakness. Per the patient's daughter last month, her blood pressure medication was adjusted (daughter is uncertain of names of medications). A few days ago, she had an episode of nausea and vomiting after eating and subsequently had a poor appetite with decreased oral intake over the past few days. She became weak and had difficulty standing and walking. She suffered a fall and injured her left wrist. She was brought to the emergency room where her blood pressure was noted to be low. Blood pressure was 92/47 in the emergency room, but reportedly lower by paramedics who started her on intravenous fluids. She was admitted for further treatment. She currently denies chest pain, dyspnea, or palpitations. She denies dizziness or lightheadedness. Denies any focal weakness of the arms or legs. PAST MEDICAL HISTORY: As noted above. History of seizures, hypothyroidism, depression, Alzheimer disease, and history of hypertension. MEDICATIONS: Currently, levothyroxine 50 mcg daily, clonidine 0.1 mg q.6 hours p.r.n., Zofran p.r.n., phosphorus 250 mg 3 times daily, Tylenol p.r.n., and Ativan p.r.n. Outpatient medications per the admission list include BuSpar, Aricept, Xalatan eye drops, Keppra, levothyroxine, lisinopril, and sertraline. ALLERGIES: Penicillin and iodine. SOCIAL HISTORY: The patient is a nonsmoker. Does not drink alcohol or use any drugs. She lives with her daughter. PHYSICAL EXAMINATION: VITAL SIGNS: Blood pressure is 143/74, pulse 88, respirations 18, and temperature 100 (T-max). GENERAL: Alert and thin elderly woman, in no acute distress. HEENT: Normocephalic and atraumatic. Pupils are equal, round, and reactive to light. Sclerae anicteric. Oral mucosa are moist. NECK: Supple. There is no jugular venous distention. No thyromegaly. Carotid pulses are 2+ bilaterally and there is a left carotid bruit. LUNGS: Clear to auscultation bilaterally. HEART: Regular rate and rhythm. Normal S1, S2 with a 2/6 systolic ejection murmur heard at the lower left sternal border, nonradiating. No S3, S4, or rubs. ABDOMEN: Soft and nontender. No palpable mass. EXTREMITIES: No cyanosis, clubbing, or edema. Bilateral SCDs. NEUROLOGIC: No gross focal motor deficits. LABORATORY AND DIAGNOSTIC DATA: Hemoglobin is 12.2, white blood count 5600, and platelets 178,000. Sodium 136, potassium 3.8, chloride 103, bicarbonate 27, BUN 29, and creatinine 0.8. Troponin 0.01. TSH 0.076. ProBNP on admission 3491. EKG on admission shows normal sinus rhythm at the rate of 70 by atrial enlargement, left axis and QT prolongation (QT corrected 470 milliseconds). Chest x-ray is pending. Wrist x-ray shows a distal left radius fracture. ASSESSMENT AND RECOMMENDATIONS: The patient is an 83-year-old woman with history of hypothyroidism, hypertension, and seizures, who was admitted with hypotension and weakness. This may have been due to her decreased oral intake over the past week as well as adjustment of her blood pressure medications. She does not appear with any evidence for acute coronary syndrome or congestive heart failure. Her blood pressure has improved. She is currently on clonidine p.r.n. Would prefer regular daily medications to avoid large fluctuations in blood pressure. I would start low-dose amlodipine. She is noted with suppressed TSH. This will be managed per Endocrinology. She is also noted to have suffered a left wrist fracture in the fall and orthopedic surgery has been contacted. Her current cardiac status appears stable. Medications will be adjusted as noted above. Further recommendations will be made based on her clinical course and Dr. Delong will continue to follow her starting 01/05/2019. Delmi Walls M.D. DR: DIONISIO JOB#: [id number] CC:
[2019-01-04] VITALS: BP 130/80
[2019-01-04 04:04] VITALS: BP 128/79
[2019-01-04 05:53] LABS: ANION GAP 8 mmol/L (5-15); BLOOD UREA NITROGEN 25 mg/dL (7-18); CALCIUM 8.7 MG/DL (8.5-10.1); CARBON DIOXIDE 28 MMOL/L (21-32); CHLORIDE 105 MMOL/L (98-107); CREATININE 0.8 MG/DL (0.55-1.30); PHOSPHORUS 2.4 MG/DL (2.5-4.9); POTASSIUM 3.5 MMOL/L (3.5-5.1); SODIUM 141 MMOL/L (136-145)
--- NOTE | 2019-01-04 07:37 | NUR ---
HAND-OFF: Report given to BHARGAV Serna. Patient is awake and in bed, VS stable.
--- NOTE | 2019-01-04 07:50 | Pulmonology Progress Note ---
Assessment/Plan Assessment/Plan ASSESSMENT hypotension ( possibly due to over-effect of newly prescribed anti-HTN meds) acute tubular necrosis -resolved ( likely due to dehydration leading to hypovolemia )n severe protein calorie malnutrition non-displaced left distal radius fracture. history of breast cancer hypothyroidism with low TSH e/lyte imbalance - hypo Mg, hypo K, hypo P DDD L spine PLAN.OF CARE [facility] floor monitor renal parameters and electrolytes, correct electrolytes as needed, avoid nephrotoxic's dc IVF encourage oral hydration monitor BP closely Echocardiogram last echo done in 2015 with pEF 65% venous duplex BLE negative left wrist x-ray revealed distal radial fracture lumbar spine MRI possibly subacute endplate compression fracture at L2 no other acute abnormality. Multilevel degenerative changes. ortho seen and evaluated , recommended nonweightbearing for 6 weeks wrist splint ordered pain management additional P replacement Synthroid dose decreased due to elevated TSH, repeat TSH in 3 wks, endo follows dietary eval calorie count protein supplements, appetite stimulant added supportive care PT eval and Rx addendum: got a call around 1630 that patient BP was severely elevated, started on Clonidine, cardio follows for further management of BP patient was transferred to telemetry case discussed and evaluated by supervising physician Subjective Allergies: Coded Allergies: PENICILLINS (Verified Allergy, Unknown, 10/24/15) IODINE (Verified Adverse Reaction, Severe, SEIZURE, 11/06/12) Subjective no signs of resp distress, denies chest pain Objective Last 24 Hour Vital Signs Date Time Temp Pulse Resp B/P (MAP) Pulse Ox O2 Delivery O2 Flow Rate FiO2 01/04/19 04:04 98.4 85 18 128/79 (95) 94 01/04/19 00:00 98.2 86 18 130/80 (97) 95 01/03/19 21:00 Room Air 01/03/19 20:00 98.4 89 18 120/60 (80) 94 01/03/19 17:52 94 114/55 01/03/19 16:31 98.6 94 20 114/55 (74) 96 01/03/19 12:36 153/56 (88) 01/03/19 12:00 98.1 89 21 162/59 (93) 96 01/03/19 09:00 Room Air 01/03/19 08:46 99.1 88 18 136/50 (78) 100 Intake and Output 01/03/19 01/04/19 19:00 07:00 Intake Total 360 ml 360 ml Output Total 300 ml Balance 60 ml 360 ml Intake Oral 360 ml 360 ml Output Urine Total 300 ml # Voids 3 Objective General Appearance: no acute distress, cachetic, awake, responsive elderly female HEENT: normocephalic, atraumatic, anicteric, mucous membranes moist Respiratory/Chest: chest wall non-tender, normal breath sounds - with moderate air exchange, no respiratory distress Cardiovascular: normal rate Abdomen: normal bowel sounds, soft, non tender Extremities: no edema, pedal pulses normal Neurologic/Psychiatric: abnormal gait - bedridden , responsive Musculoskeletal: atrophy - BLE Microbiology Date/Time Source Procedure Growth Status 01/01/19 09:05 Blood Blood Culture - Preliminary NO GROWTH AFTER 48 HOURS Resulted 01/01/19 08:50 Blood Blood Culture - Preliminary NO GROWTH AFTER 48 HOURS Resulted Laboratory Tests 01/04/19 05:10: Sodium Level 141, Potassium Level 3.5, Chloride Level 105, Carbon Dioxide Level 28, Anion Gap 8, Blood Urea Nitrogen 25H, Creatinine 0.8, Estimat Glomerular Filtration Rate , Glucose Level 104, Calcium Level 8.7, Phosphorus Level 2.4L, Magnesium Level 1.9 Current Medications Medications (Trade) Dose Ordered Sig/Peter Route PRN Reason Start Time Stop Time Status Last Admin Dose Admin Acetaminophen (Tylenol) 650 mg Q4H PRN ORAL fever 01/02/19 15:05 02/01/19 15:04 Al Hydroxide/Mg Hydroxide (Mylanta II) 30 ml Q6H PRN ORAL dyspepsia 01/02/19 15:05 02/01/19 15:04 Amlodipine Besylate (Norvasc) 2.5 mg DAILY ORAL 01/04/19 09:00 02/03/19 08:59 Cyproheptadine HCl (Periactin) 2 mg QID ORAL 01/02/19 18:00 01/31/19 17:59 01/03/19 21:00 Dextrose (Dextrose 50%) 25 ml Q30M PRN IV Hypoglycemia 01/02/19 15:15 01/31/19 12:30 Dextrose (Dextrose 50%) 50 ml Q30M PRN IV hypoglycemia 01/02/19 15:15 01/31/19 12:44 Dextrose/Sodium Chloride 1,000 ml @ 40 mls/hr Q24H IV 01/03/19 10:45 02/01/19 10:44 01/03/19 11:55 Levothyroxine Sodium (Synthroid) 50 mcg DAILY@0630 ORAL 01/03/19 06:30 02/02/19 06:29 01/04/19 05:56 Lorazepam (Ativan 2mg/ml 1ml) 0.5 mg Q4H PRN IV For Anxiety 01/02/19 15:05 01/09/19 15:04 Morphine Sulfate (Morphine Sulfate) 1 mg Q4H PRN IVP For Pain 01/02/19 15:06 01/09/19 15:05 Ondansetron HCl (Zofran) 4 mg Q6H PRN IVP Nausea & Vomiting 01/02/19 15:06 02/01/19 15:05 Phosphorus (Phospha 250 Neutral) 250 mg THREE TIMES A DAY ORAL 01/03/19 13:00 01/04/19 09:01 01/03/19 17:53 Polyethylene Glycol (Miralax) 17 gm HSPRN PRN ORAL Constipation 01/02/19 15:06 02/01/19 15:05 Zolpidem Tartrate (Ambien) 5 mg HSPRN PRN ORAL Insomnia 01/02/19 15:06 01/09/19 15:05 Christelle Spicer NP January 04, 2019 07:50
[2019-01-04 08:00] VITALS: BP 120/67
--- NOTE | 2019-01-04 08:00 | NUR ---
NURSE NOTES: Received report from Jeremy DURANT, pt laying in bed a/a/o x2, pt in stable condition with no signs of distress or other issues at this time. pt is wearing a wrist tester waste disposal leakage. Iv on the left hand gauge #20 running D5 1/2NS@75ml/hr. call light with in reach. bed in lowest position. bed alarm, side rales up x3. I will f/u as needed.
[2019-01-04] MEDS: Phospha 250 Neutral tab ORAL SCH ×2 (08:41→18:33)
[2019-01-04] MEDS: Cyproheptadine HCl 4mg tab ORAL SCH ×4 (08:41→20:42)
[2019-01-04 12:00] VITALS: BP 144/69
--- NOTE | 2019-01-04 12:19 | Cardiology Progress Note ---
Assessment/Plan Problem List: (1) Hypertension (2) Hypothyroidism (3) ATN (acute tubular necrosis) Status: stable, progressing Status Narrative Pt's hypotension has resolved w/ rehydration and med adjustment. Will check orthostatic VS today continue low dose amlodipine. Physical therapy to assess gait, assist w/ mobility. Assessment/Plan Continue low dose amlodipine. Check ortho VS PT evaluation. Synthroid dose adjusted per Dr. Hooker Subjective ROS Limited/Unobtainable: No Subjective Cardiology for Dr. Delong Pt feels well, no c/o. She is OOB to chair . Objective Last 24 Hour Vital Signs Date Time Temp Pulse Resp B/P (MAP) Pulse Ox O2 Delivery O2 Flow Rate FiO2 01/04/19 09:00 Room Air 01/04/19 08:41 82 120/67 01/04/19 08:00 97.7 82 16 120/67 (84) 94 01/04/19 04:04 98.4 85 18 128/79 (95) 94 01/04/19 00:00 98.2 86 18 130/80 (97) 95 01/03/19 21:00 Room Air 01/03/19 20:00 98.4 89 18 120/60 (80) 94 01/03/19 17:52 94 114/55 01/03/19 16:31 98.6 94 20 114/55 (74) 96 01/03/19 12:36 153/56 (88) General Appearance: WD/WN, no apparent distress, alert, thin EENT: PERRL/EOMI Neck: non-tender, supple Rhythm: NSR Cardiovascular: normal rate, regular rhythm, no gallop/murmur Respiratory/Chest: lungs clear Abdomen: non tender, soft Extremities: no swelling Intake and Output 01/03/19 01/04/19 19:00 07:00 Intake Total 360 ml 360 ml Output Total 300 ml Balance 60 ml 360 ml Intake Oral 360 ml 360 ml Output Urine Total 300 ml # Voids 3 Laboratory Tests Test 01/04/19 05:10 Sodium Level 141 MMOL/L (136-145) Potassium Level 3.5 MMOL/L (3.5-5.1) Chloride Level 105 MMOL/L (98-107) Carbon Dioxide Level 28 MMOL/L (21-32) Anion Gap 8 mmol/L (5-15) Blood Urea Nitrogen 25 mg/dL (7-18) H Creatinine 0.8 MG/DL (0.55-1.30) Estimat Glomerular Filtration Rate mL/min (>60) Glucose Level 104 MG/DL (74-106) Calcium Level 8.7 MG/DL (8.5-10.1) Phosphorus Level 2.4 MG/DL (2.5-4.9) L Magnesium Level 1.9 MG/DL (1.8-2.4) Delmi Walls MD January 04, 2019 12:19
--- NOTE | 2019-01-04 12:29 | General Progress Note ---
Assessment/Plan Problem List: (1) Hypothyroidism ICD Codes: E03.9 - Hypothyroidism, unspecified SNOMED: 17942464 (2) Hypotension ICD Codes: I95.9 - Hypotension, unspecified SNOMED: 36690832 (3) Polypharmacy ICD Codes: Z79.899 - Other detention (current) drug therapy SNOMED: 468199182 Status: stable, progressing Assessment/Plan: continue Levothyroxine 50 mcg daily repeat thyroid function in 3 weeks discussed with fruit inspector at bedside I sign off Subjective Allergies: Coded Allergies: PENICILLINS (Verified Allergy, Unknown, 10/24/15) IODINE (Verified Adverse Reaction, Severe, SEIZURE, 11/06/12) All Systems: reviewed and negative except above Subjective events noted having lunch care management coordinator at bedside Objective Last 24 Hour Vital Signs Date Time Temp Pulse Resp B/P (MAP) Pulse Ox O2 Delivery O2 Flow Rate FiO2 01/04/19 09:00 Room Air 01/04/19 08:41 82 120/67 01/04/19 08:00 97.7 82 16 120/67 (84) 94 01/04/19 04:04 98.4 85 18 128/79 (95) 94 01/04/19 00:00 98.2 86 18 130/80 (97) 95 01/03/19 21:00 Room Air 01/03/19 20:00 98.4 89 18 120/60 (80) 94 01/03/19 17:52 94 114/55 01/03/19 16:31 98.6 94 20 114/55 (74) 96 01/03/19 12:36 153/56 (88) Intake and Output 01/03/19 01/04/19 19:00 07:00 Intake Total 360 ml 360 ml Output Total 300 ml Balance 60 ml 360 ml Intake Oral 360 ml 360 ml Output Urine Total 300 ml # Voids 3 Laboratory Tests 01/04/19 05:10: Sodium Level 141, Potassium Level 3.5, Chloride Level 105, Carbon Dioxide Level 28, Anion Gap 8, Blood Urea Nitrogen 25H, Creatinine 0.8, Estimat Glomerular Filtration Rate , Glucose Level 104, Calcium Level 8.7, Phosphorus Level 2.4L, Magnesium Level 1.9 Height (Feet): 5 Height (Inches): 9.00 Weight (Pounds): 116 General Appearance: no apparent distress Neck: normal alignment Respiratory/Chest: lungs clear Abdomen: normal bowel sounds Pelvis: normal external exam Objective Current Medications Medications (Trade) Dose Ordered Sig/Peter Route PRN Reason Start Time Stop Time Status Last Admin Dose Admin Acetaminophen (Tylenol) 650 mg Q4H PRN ORAL fever 01/02/19 15:05 02/01/19 15:04 Al Hydroxide/Mg Hydroxide (Mylanta II) 30 ml Q6H PRN ORAL dyspepsia 01/02/19 15:05 02/01/19 15:04 Amlodipine Besylate (Norvasc) 2.5 mg DAILY ORAL 01/05/19 09:00 02/03/19 08:59 Cyproheptadine HCl (Periactin) 2 mg QID ORAL 01/02/19 18:00 01/31/19 17:59 01/04/19 08:41 Dextrose (Dextrose 50%) 25 ml Q30M PRN IV Hypoglycemia 01/02/19 15:15 01/31/19 12:30 Dextrose (Dextrose 50%) 50 ml Q30M PRN IV hypoglycemia 01/02/19 15:15 01/31/19 12:44 Levothyroxine Sodium (Synthroid) 50 mcg DAILY@0630 ORAL 01/03/19 06:30 02/02/19 06:29 01/04/19 05:56 Lorazepam (Ativan 2mg/ml 1ml) 0.5 mg Q4H PRN IV For Anxiety 01/02/19 15:05 01/09/19 15:04 Morphine Sulfate (Morphine Sulfate) 1 mg Q4H PRN IVP For Pain 01/02/19 15:06 01/09/19 15:05 Ondansetron HCl (Zofran) 4 mg Q6H PRN IVP Nausea & Vomiting 01/02/19 15:06 02/01/19 15:05 Phosphorus (Phospha 250 Neutral) 250 mg THREE TIMES A DAY ORAL 01/04/19 13:00 01/05/19 09:01 Polyethylene Glycol (Miralax) 17 gm HSPRN PRN ORAL Constipation 01/02/19 15:06 02/01/19 15:05 Zolpidem Tartrate (Ambien) 5 mg HSPRN PRN ORAL Insomnia 01/02/19 15:06 01/09/19 15:05 Leandro Hooker MD January 04, 2019 12:29
[2019-01-04] MEDS ORDERED: Phospha 250 Neutral tab ORAL SCH (13:00)
[2019-01-04 17:15] VITALS: BP 183/100
--- NOTE | 2019-01-04 17:35 | NUR ---
NURSE NOTES: During VS rounds RN noticed BP to be 213/114, 196/11, 197/110 however pt is asymptomatic. RN called Spicer PRINTING AGENT to inform of the high BP. Per Spicer to give Clonidine 0.1mg now and then Q6h PRN if BP >160. also to transfer pt to Telemetry floor for closer monitor. Cirilo DURANT CN is aware and we will call house sup to request Tele bed. I will f/u as needed.
--- NOTE | 2019-01-04 18:00 | NUR ---
NURSE NOTES: Given report from Saad RN, pt in stable condition, however pt's BP is 197/110, pt is asymptomatic. Prior to transfer pt, RN given Clonidine 0.1mg. caregiver at bedside. I will f/u as needed.
--- NOTE | 2019-01-04 18:10 | NUR ---
NURSE NOTES: Received report from BHARGAV Serna. Patient transferred from to [facility] per CASANDRA Spicer for high blood pressure. Endorsed one dose of clonidine given just prior to transfer, VS at the time of arrival, BP 183/100, HR 100, on room air 94%, T 97.7. Patient denies pain at this time, Patient AOx3. Right wrist extension brace on for right distal radial fracture. Belonging list checked with RN, panel monitor on, daycare provider at the bedside, bedside commode at the bedside. Bed in lowest position, side rails upx2, call light within reach, bed alarm on. Will continue to monitor.
[2019-01-04] MEDS ORDERED: Mylanta II UD 30ml ORAL PRN (18:13)
[2019-01-04] MEDS ORDERED: LORazepam Inj 2mg/ml 1ml IV PRN (18:14)
[2019-01-04] MEDS ORDERED: Morphine Sulfate 2mg/ml Inj(IV/IM USE ONLY) IVP PRN (18:15)
--- NOTE | 2019-01-04 19:11 | NUR ---
NURSE NOTES: Received report from Saad Roberson RN. Patient seen in bed in lucas position. alert, verbally responsive, able to make needs known. On room air with no acute respiratory distress noted. denies any pain at this time. brace noted to right wrist. Iv site is to right hand 20g and is intact. Bed is in lowest position. call light is within easy reach while in bed. will continue to monitor. Addendum: 01/04/19 at 2048 by Kareem Gallardo RN NURSE NOTES: Received report from Saad Roberson RN. Patient seen in bed in lucas position. alert, verbally responsive, able to make needs known. On room air with no acute respiratory distress noted. denies any pain at this time. brace noted to left wrist. Iv site is to right hand 20g and is intact. Bed is in lowest position. call light is within easy reach while in bed. will continue to monitor.
--- NOTE | 2019-01-04 19:34 | NUR ---
HAND-OFF: Report given to BHARGAV Sweet.
[2019-01-04 20:00] VITALS: BP 180/94
[2019-01-05] VITALS: BP 143/87
[2019-01-05 04:00] VITALS: BP 105/56
--- NOTE | 2019-01-05 07:28 | NUR ---
HAND-OFF: Report given to Jcarlos Billingsley Addendum: 01/05/19 at 0728 by Kareem Gallardo RN HAND-OFF: Report given to Jcarlos Billingsley RN
[2019-01-05 07:54] LABS: BASOPHILS % (AUTO) 1.9 % (0.0-2.0); EOSINOPHILS % (AUTO) 0.8 % (0.0-3.0); HEMATOCRIT 35.4 % (37.0-47.0); HEMOGLOBIN 11.9 G/DL (12.0-16.0); LYMPHOCYTES % (AUTO) 14.8 % (20.0-45.0); MEAN CORPUSCULAR VOLUME 83 FL (80-99); NEUTROPHILS % (AUTO) 73.5 % (45.0-75.0); PLATELET COUNT 211 K/UL (150-450); RED BLOOD COUNT 4.29 M/UL (4.20-5.40); RED CELL DISTRIBUTION WIDTH 11.4 % (11.6-14.8); WHITE BLOOD COUNT 7.1 K/UL (4.8-10.8)
--- NOTE | 2019-01-05 07:59 | NUR ---
NURSE NOTES: Patient is eating breakfast. Patient is on room air. Side rails are up x2, bed is locked, and call light is within reach. Will continue to monitor.
[2019-01-05 08:00] VITALS: BP 103/50
[2019-01-05 08:14] LABS: ANION GAP 4 mmol/L (5-15); BLOOD UREA NITROGEN 25 mg/dL (7-18); CALCIUM 9.2 MG/DL (8.5-10.1); CARBON DIOXIDE 32 MMOL/L (21-32); CHLORIDE 103 MMOL/L (98-107); CREATININE 0.8 MG/DL (0.55-1.30); POTASSIUM 3.8 MMOL/L (3.5-5.1); SODIUM 139 MMOL/L (136-145)
[2019-01-05] MEDS: Cyproheptadine HCl 4mg tab ORAL SCH ×2 (09:00→13:00)
[2019-01-05] MEDS: Phospha 250 Neutral tab ORAL SCH (09:02)
--- NOTE | 2019-01-05 11:30 | NUR ---
CASE MANAGEMENT:REVIEW 01/05/19 SI:HYPOTENSION. GENERALIZED WEAKNESS DISTAL RADIAL FRACTURE. SPINAL COMPRESSION FRACTURE 97.6 97 20 103/50 95% ON RA IS: NORVASC PO QD SYNTHROID PO QD PERIACTIN PO QID : TELEMETRY STATUS DCP: FROM HOME PLAN: [facility]
[2019-01-05 12:00] VITALS: BP 108/57
--- NOTE | 2019-01-05 12:03 | NUR ---
discharge planning DATE PULLER ORDERED "[facility]" FROM [facility] T: [phone]
--- NOTE | 2019-01-05 12:10 | NUR ---
RD ASSESSMENT & RECOMMENDATIONS SEE CARE ACTIVITY FOR COMPLETE ASSESSMENT DAILY ESTIMATED NEEDS: Needs based on Wt loss, underweight/ 53kg 30-35 kcals/kg 0773-6835 total kcals 1-1.5 g protein/kg 53-79 g total protein 25-30 mL/kg 2205-3938 total fluid mLs NUTRITION DIAGNOSIS: Increased kcal/prot needs R/T underweight status and wt loss as evidenced by pt @ 80% IBW, low BMI per guidelines, CG reports recent ~19lbs/ 14% wt loss in 3 months, significant. PO DIET RECOMMENDATIONS: REGULAR diet/ texture as tolerated + Ensure Enlive TID w/ meals ADDITIONAL RECOMMENDATIONS: * TXR PT TO BED WITH BEDSCALE, OBTAIN WEEKLY WTS * F/up w/ Calorie Count x 48 hrs (01/01-01/03)-> UNABLE TO LOCATE * Add Ensure Enlive TID w/ meals (350kcal/20g prot per bottle) * MVI x 1 as supplement * Add fortified pureed soups to lunch and dinner trays * CONSIDER APPETITE STIMULANT
[2019-01-05] MEDS ORDERED: ACETAMINOPHEN-1 EAC1 ORAL (12:23)
[2019-01-05] MEDS ORDERED: SYNTHROID50 MCG ORAL (12:23)
[2019-01-05] MEDS ORDERED: NORVASC2.5 MG ORAL (12:23)
[2019-01-05] MEDS ORDERED: CYPROHEPTADINE H4 MG ORAL (12:23)
--- NOTE | 2019-01-05 12:24 | Pulmonology Progress Note ---
Assessment/Plan Problems: (1) ATN (acute tubular necrosis) (2) Hypotension (3) Polypharmacy (4) Severe protein-calorie malnutrition (5) Hypothyroidism (6) History of breast cancer Assessment/Plan no new complains electrolytes improving BP more stable continue calorie count endocrinology pending dvt prophylaxis. Subjective ROS Limited/Unobtainable: No Constitutional: Reports: no symptoms HEENT: Repors: no symptoms Respiratory: Reports: no symptoms Allergies: Coded Allergies: PENICILLINS (Verified Allergy, Unknown, 10/24/15) IODINE (Verified Adverse Reaction, Severe, SEIZURE, 11/06/12) Objective Last 24 Hour Vital Signs Date Time Temp Pulse Resp B/P (MAP) Pulse Ox O2 Delivery O2 Flow Rate FiO2 01/05/19 09:00 88 103/50 01/05/19 08:15 Room Air 01/05/19 08:00 93 01/05/19 08:00 97.6 97 20 103/50 (67) 95 01/05/19 04:00 97 95 97 01/05/19 04:00 97.1 97 17 105/56 (72) 97 01/05/19 03:40 90 01/05/19 00:00 98.1 97 19 143/87 (105) 94 01/04/19 23:35 108 01/04/19 21:00 Room Air 01/04/19 20:15 97 01/04/19 20:00 98.3 95 20 180/94 (122) 94 01/04/19 17:15 97 01/04/19 17:15 97.7 100 18 183/100 (127) 94 01/04/19 17:01 197/110 Intake and Output 01/04/19 01/05/19 19:00 07:00 Intake Total 240 ml Balance 240 ml Intake Oral 240 ml # Voids 1 5 # Bowel Movements 2 General Appearance: WD/WN HEENT: normocephalic, anicteric Respiratory/Chest: chest wall non-tender, lungs clear Cardiovascular: normal peripheral pulses, normal rate Abdomen: normal bowel sounds, soft, non tender, no organomegaly Extremities: no cyanosis Skin: no rash Neurologic/Psychiatric: nurse ldr II-XII grossly normal Lymphatic: no neck adenopathy Laboratory Tests 01/05/19 07:35: White Blood Count 7.1, Red Blood Count 4.29, Hemoglobin 11.9L, Hematocrit 35.4L , Mean Corpuscular Volume 83, Mean Corpuscular Hemoglobin 27.6, Mean Corpuscular Hemoglobin Concent 33.4, Red Cell Distribution Width 11.4L, Platelet Count 211, Mean Platelet Volume 6.7, Neutrophils (%) (Auto) 73.5, Lymphocytes (%) (Auto) 14.8L, Monocytes (%) (Auto) 9.0, Eosinophils (%) (Auto) 0.8, Basophils (%) (Auto) 1.9, Sodium Level 139, Potassium Level 3.8, Chloride Level 103, Carbon Dioxide Level 32, Anion Gap 4L, Blood Urea Nitrogen 25H, Creatinine 0.8, Estimat Glomerular Filtration Rate , Glucose Level 110H, Calcium Level 9.2 Current Medications Medications (Trade) Dose Ordered Sig/Peter Route PRN Reason Start Time Stop Time Status Last Admin Dose Admin Acetaminophen (Tylenol) 650 mg Q4H PRN ORAL fever 01/04/19 18:13 02/01/19 18:12 Al Hydroxide/Mg Hydroxide (Mylanta II) 30 ml Q6H PRN ORAL dyspepsia 01/04/19 18:13 02/01/19 18:12 Amlodipine Besylate (Norvasc) 2.5 mg DAILY ORAL 01/05/19 09:00 02/03/19 08:59 Clonidine HCl (Catapres Tab) 0.1 mg Q6H PRN ORAL SBP>160 01/04/19 18:13 02/03/19 18:12 Cyproheptadine HCl (Periactin) 2 mg QID ORAL 01/04/19 18:00 01/31/19 17:59 01/04/19 20:42 Dextrose (Dextrose 50%) 25 ml Q30M PRN IV Hypoglycemia 01/04/19 18:13 01/31/19 18:12 Dextrose (Dextrose 50%) 50 ml Q30M PRN IV hypoglycemia 01/04/19 18:13 01/31/19 18:12 Levothyroxine Sodium (Synthroid) 50 mcg DAILY@0630 ORAL 01/05/19 06:30 02/02/19 06:29 01/05/19 06:04 Lorazepam (Ativan 2mg/ml 1ml) 0.5 mg Q4H PRN IV For Anxiety 01/04/19 18:14 01/09/19 18:13 Morphine Sulfate (Morphine Sulfate) 1 mg Q4H PRN IVP For Pain 01/04/19 18:15 01/09/19 18:14 01/04/19 20:42 Ondansetron HCl (Zofran) 4 mg Q6H PRN IVP Nausea & Vomiting 01/04/19 18:15 02/01/19 18:14 Polyethylene Glycol (Miralax) 17 gm HSPRN PRN ORAL Constipation 01/05/19 21:00 02/01/19 20:59 Zolpidem Tartrate (Ambien) 5 mg HSPRN PRN ORAL Insomnia 01/05/19 21:00 01/09/19 20:59 Cheo Moffett MD January 05, 2019 12:24
--- NOTE | 2019-01-05 16:26 | NUR ---
NURSE NOTES: Patient discharged Home via private vehicle. Patient accompanied by caregiver. Patient had no belongings. IV removed. ID bracelet removed. Discharge instructions and prescription given to caregiver. Patient stable upon discharge.
[2019-01-05] MEDS ORDERED: Miralax 17gm pkt ORAL PRN (21:00)
[2019-01-05] MEDS ORDERED: Zolpidem 5mg tab ORAL PRN (21:00)
--- NOTE | 2019-01-06 00:15 | Progress Note ---
DATE: 01/04/2019 SUBJECTIVE: The patient was diagnosed with left distal radius fracture. She now has the splint in place. She is doing relatively well overall. PHYSICAL EXAMINATION: EXTREMITIES: On examination, the patient is still swelling in the left hand. There is tenderness to palpation. Left hand, radial and ulnar pulses +2.. Flexion and extension of the wrist is intact but painful. ASSESSMENT: Left extra-articular distal radius fracture. DISCUSSION: At this point, I think closed treatment for the patient is acceptable it will take approximately for 6 weeks for the fracture to heal. At that point, they can transition her out the splint. The patient will be weightbearing as tolerated. At that point, I will see the patient back as outpatient as needed. Closed treatment of a left extra-articular distal radius fracture with manipulation. Brad Samuels M.D. DR: Magda JOB#: [id number] CC:
--- NOTE | 2019-01-06 14:25 | Cardiology Report ---
APPROVED REPORT EXAM: Two-dimensional and M-mode echocardiogram with Doppler and color Doppler. INDICATION LV FUNCTION M-Mode DIMENSIONS IVSd1.1 (0.7-1.1cm)Left Atrium (MM)2.7 (1.6-4.0cm) LVDd4.4 (3.5-5.6cm)Aortic Root3.7 (2.0-3.7cm) PWd0.9 (0.7-1.1cm)Aortic Cusp Exc.1.8 (1.5-2.0cm) IVSs1.4 cm LVDs2.8 (2.5-4.0cm) PWs1.0 cm Normal left ventricular chamber size, systolic function and wall motion to extent visualized. Left ventricular ejection fraction estimated to be 55-60%. Mild left ventricular hypertrophy by 2-D. Trivial pericardial effusion. All other cardiac chamber sizes are within normal limits. Aortic valve calcification with normal cusp excursion . Moderately thickened mitral valve leaflets with normal excursion. Mild mitral annulus and aortic root calcification. Pulmonic valve not well visualized. IVC at size 1.5 cm without physiologic collapse suggestive of mildly increased RA pressure. A color flow and spectral Doppler study was performed and revealed: Mild aortic insufficiency . Trace mitral regurgitation. Mitral diastolic velocities suggest reduced left ventricular relaxation c/w mild LV diastolic dysfunction (Grade I ) Trace tricuspid regurgitation. Tricuspid systolic velocities suggests peak right ventricular systolic pressure of 17mmHg,consistent with moderate pulmonary hypertension . Mild pulmonic regurgitation .
--- NOTE | 2019-01-07 10:05 | Diagnostic Imaging Report ---
APPROVED REPORT CPT Code: 86819 Present Symptoms Lower Extremity Pain: Right BILATERAL: Imaging reveals a patent deep venous system bilaterally. There is no evidence of thrombus within the common femoral, superficial femoral, popliteal or tibial segments. The greater saphenous veins are within normal limits. Doppler indicates normal spontaneous flow within these segments. INCIDENTAL FINDING: Large Bakers cyst noted near the right popliteal area, measuring (2.4 cm x 0.1 cm).
--- NOTE | 2019-01-07 14:05 | History and Physical ---
History of Present Illness General Reason for Hospitalization: Generalized Weakness Present Illness HPI 83 year old female with hx of HTN, breast Ca, hypothyroid, seizures ( last episode many years ago) brought in by paramedics with cc of increased weakness and lack of appetite. Pt was found to have ATN and was hypotensive as well. She is admitted to telemetry for further management. Allergies: Coded Allergies: PENICILLINS (Verified Allergy, Unknown, 10/24/15) IODINE (Verified Adverse Reaction, Severe, SEIZURE, 11/06/12) Medication History Scheduled Amlodipine Besylate (Norvasc), 2.5 MG ORAL DAILY Carbamide Peroxide (Debrox), 5 DROP OT QID Cyproheptadine Hcl (Cyproheptadine Hcl), 2 MG ORAL DAILY Donepezil Hcl* (Aricept*), 10 MG ORAL DAILY, (Reported) Latanoprost* (Xalatan*), 1 DROP BOTH EYES QHS, (Reported) Levetiracetam (Keppra), 250 MG ORAL Q12HR Levothyroxine Sodium (Synthroid), 50 MCG ORAL DAILY@0630 Levothyroxine Sodium* (Levothyroxine Sodium*), 75 MCG ORAL ACBREAKFAST Lisinopril* (Lisinopril*), Unknown Dose ORAL DAILY, (Reported) Sertraline Hcl* (Zoloft*), Unknown Dose ORAL DAILY, (Reported) Scheduled PRN Acetaminophen With Codeine (T#3) (Tylenol #3 Tab*), 1 TAB ORAL Q4H PRN Miscellaneous Medications Buspirone Hcl* (Buspirone Hcl*), 10 MG ORAL, (Reported) Patient History Healthcare decision maker REN GARCIA Resuscitation status Full Code Advanced Directive on File No Past Medical/Surgical History Past Medical/Surgical History: (1) Mild diastolic dysfunction (2) Severe protein-calorie malnutrition (3) Hypothyroidism (4) History of breast cancer (5) Polypharmacy (6) Hypertension Review of Systems All Other Systems: negative except mentioned in HPI Physical Exam General Appearance: cachetic, thin Lines, tubes and drains: peripheral HEENT: normocephalic Neck: non-tender, normal alignment Respiratory/Chest: chest wall non-tender Abdomen: normal bowel sounds Genitourinary/Rectal: normal genital exam Extremities: normal range of motion Skin Exam: normal pigmentation Neurologic: brake operator helper II-XII grossly normal Height (Feet): 5 Height (Inches): 9.00 Weight (Pounds): 116 Assessment/Plan Problem List: (1) ATN (acute tubular necrosis) ICD Codes: N17.0 - Acute kidney failure with tubular necrosis SNOMED: 21485491 (2) Hypotension ICD Codes: I95.9 - Hypotension, unspecified SNOMED: 54473581 (3) Polypharmacy ICD Codes: Z79.899 - Other predatory animal exterminator (current) drug therapy SNOMED: 153548142 (4) Severe protein-calorie malnutrition ICD Codes: E43 - Unspecified severe protein-calorie malnutrition SNOMED: 329236065, 846425659, 223405256 (5) Hypothyroidism ICD Codes: E03.9 - Hypothyroidism, unspecified SNOMED: 57354796 (6) History of breast cancer ICD Codes: Z85.3 - Personal history of malignant neoplasm of breast SNOMED: 559781982 Assessment/Plan: iv fluids check electrolytes calorie count trial of Marinol dc unnecessary medications. Cheo Moffett MD January 07, 2019 14:05
--- NOTE | 2019-01-08 15:30 | Discharge Summary ---
Discharge Summary Discharge Summary _ DATE OF ADMISSION: 01/01/2019 DATE OF DISCHARGE: 01/05/2019 DISCHARGED BY: Dr. Moffett REASON FOR ADMISSION: 83 years old female with past medical history of hypertension, breast cancer, asthma, hypothyroidism, seizure disorder(last episode many years ago), brought by paramedics with chief complaint of increased weakness and lack of appetite. Patient recently had her blood pressure medication adjusted. Patient noted to be increasingly more weak. Upon evaluation in emergency department, patient was found to be in acute renal failure and was hypotensive. Blood pressure was 92/47. BUN 82 , creatinine 1.7. D-dimer elevated -2.08 . Troponin negative . EKG revealed normal sinus rhythm ,no acute ischemic changes. Venous duplex bilateral lower extremity revealed no evidence of acute DVT. Incidental findings of large Morrison's cyst in the right popliteal area. Glucose 82. Patient was subsequently admitted for further management. CONSULTANTS: extraction machine operator Dr. Walls metal melter Dr. Hooker ortho surgery Dr. Samuels HOSPITAL COURSE: Patient admitted to telemetry floor. Echocardiogram revealed preserved ejection fraction 55 to 60% with mild left ventricular hypertrophy. No evidence of wall motion abnormality. Patient started on the IV fluids. Renal parameters and electrolytes were closely monitored. Nephrotoxins were avoided. Electrolytes corrected as needed. Prior to discharge BUN from 82 down to 25 and creatinine from 1.7 down to 0.8 Acute tubular necrosis resolved. IV fluids stopped. Oral hydration was encouraged. Initially no antihypertensive medication were given. Blood pressure was closely monitored. Data Governance Analyst followed. Hypotension resolved with rehydration and medication adjustment. When blood pressure stabilized, patient started on low-dose of calcium channel alissa. Orthostatic vital signs revealed no evidence of orthostatic changes. Fall precaution maintained. Patient was working with physical therapist. Blood pressure 108/57 prior to discharge Patient complained of left wrist pain. X-ray of the left wrist revealed distal radial fracture. Orthopedic surgeon seen and evaluated patient, and recommended immobilization of left wrist and nonweightbearing for 6 weeks. Left wrist extension brace was ordered and will be delivered to patient's home. Pain management was addressed, and pain was controlled. Patient to follow-up with her orthopedic surgeon as outpatient Patient also undergone lumbar spine MRI due to chronic back pain, which revealed superior endplate depression of L2 with questionable subtle adjacent marrow edema could be indicative of subacute superior endplate compression fracture. No other acute abnormality. Multilevel degenerative changes. Per surgeon, it well take approximately 6 weeks for the fracture to heal. Close treatment of a left extra-articular distal radius fracture with manipulation will be continued as outpatient. Patient with a history of hypothyroidism . TSH level was suppressed. Front Line Supervisor followed. Per metal melter , dose of levothyroxine was decreased from 75 mcg to 50 mcg daily. Repeat thyroid function test in 2 to 4 weeks. Calorie count continued. DVT prophylaxis provided. Bowel regimen instituted . Supportive care provided . Periactin was added for improve appetite. Protein supplement implemented in plan of care as per registered dietitian. Patient clinically stabilized and was ready for discharge home . Follow up as outpatient with orthopedic surgeon as advised. FINAL DIAGNOSES: Hypotension ( possibly due to over-effect of newly prescribed anti- hypertensive medications) Acute tubular necrosis -resolved ( likely due to dehydration leading to hypovolemia ) Left extra-articular distal radius fracture , nondisplaced Iatrogenic hyperthyroidism Underlying hypothyroidism History of breast cancer Severe protein calorie malnutrition Electrolyte imbalance (magnesium, potassium , phosphorus) DDD L-spine DISCHARGE MEDICATIONS: See Medication Reconciliation list. DISCHARGE INSTRUCTIONS: Patient was discharged home. Follow up with primary care provider in one week. Christelle Spicer NP January 08, 2019 15:30
== END 2019-01-05 16:42 | disposition home or self-care (01) | DRG 682 ==
LOC: EDBD 08:26 → EMR 08:44 → 2E 10:15 → EDBEDREQ 11:43 → 3E 01-02 14:00 → 2E 01-04 17:57
DX: N17.0 Acute kidney failure with tubular necrosis (principal); E43 Unspecified severe protein-calorie malnutrition; S52.502A Unspecified fracture of the lower end of left radius, initial encounter for closed fracture; Z68.1 Body mass index [BMI] 19.9 or less, adult; I13.0 Hypertensive heart and chronic kidney disease with heart failure and stage 1 through stage 4 chronic kidney disease, or unspecified chronic kidney disease; I95.2 Hypotension due to drugs; T46.5X5A Adverse effect of other antihypertensive drugs, initial encounter; Z85.3 Personal history of malignant neoplasm of breast; Z88.0 Allergy status to penicillin; Z88.8 Allergy status to other drugs, medicaments and biological substances; E03.9 Hypothyroidism, unspecified; J45.909 Unspecified asthma, uncomplicated; G30.9 Alzheimer's disease, unspecified; F02.80 Dementia in other diseases classified elsewhere, unspecified severity, without behavioral disturbance, psychotic disturbance, mood disturbance, and anxiety; N18.9 Chronic kidney disease, unspecified; X58.XXXA Exposure to other specified factors, initial encounter; M51.36 Other intervertebral disc degeneration, lumbar region; E83.42 Hypomagnesemia; E87.6 Hypokalemia; E83.39 Other disorders of phosphorus metabolism; E86.0 Dehydration
CPT/HCPCS: 36415; 72148; 80048; 80053; 80061; 82378; 83735; 83880; 84100; 84443; 84484; 85025; 85379; 85610; 85651; 85730; 86140; 86850; 86900; 86901; 87040; 93005; 93306; 93970; 97802; 99285; C9399; J2405; J8499